=== PATIENT | male | born 1995 | race Asian ===

== ENCOUNTER 2022-07-28 04:16 | Emergency (ER) | payer BC ==
[~2022-07-28] VITALS: Ht 182.9 cm; Wt 75.8 kg
[2022-07-28 04:36] VITALS: BP 115/60
--- NOTE | 2022-07-28 04:40 | NUR ---
PT TAKEN TO BED 7
--- NOTE | 2022-07-28 04:40 | NUR ---
Patient lying in bed, A/Ox4, on monitor, chest rise and fall symmetrical, no c/o pain or s/s of discomfort.
[2022-07-28] MEDS: LORazepam 1 MG TAB PO ONE (04:56)
--- NOTE | 2022-07-28 04:59 | NUR ---
Patient lying in bed, A/Ox4, on monitor, chest rise and fall symmetrical, no c/o pain or s/s of discomfort.
--- NOTE | 2022-07-28 05:45 | NUR ---
Patient lying in bed, A/Ox4, on monitor, chest rise and fall symmetrical, no c/o pain or s/s of discomfort.
[2022-07-28 06:00] VITALS: BP 117/68
--- NOTE | 2022-07-28 06:00 | NUR ---
Patient discharged with v/s stable. Written and verbal after care instructions given and explained. Patient verbalized understanding. Ambulatory with steady gait. All questions addressed prior to discharge. Advised to follow up with PMD.
[2022-07-28 06:37] LABS: BARBITURATE, URINE NEGATIVE ng/ml (NEG <=200); BENZODIAZEPINE, URINE NEGATIVE ng/mL (NEG <=200); CANNABINOID, URINE NEGATIVE ng/mL (NEG <=50); COCAINE, URINE NEGATIVE ng/mL (NEG <=300); OPIATE, URINE NEGATIVE ng/mL (NEG <=2000); PHENCYCLIDINE SCREEN,URINE NEGATIVE ng/mL (NEG <=25)
== END 2022-07-28 06:00 | disposition home or self-care (01) ==
LOC: MED 04:16
DX: F19.10 Other psychoactive substance abuse, uncomplicated (principal); F41.9 Anxiety disorder, unspecified; R00.2 Palpitations; F12.90 Cannabis use, unspecified, uncomplicated
CPT/HCPCS: 80305; 93005; 99284